=== PATIENT | female | born 1935 | race Caucasian/White ===

== ENCOUNTER 2017-08-14 23:02 | Emergency (ER) | payer MEDICARE, BC ==
--- NOTE | 2017-08-16 13:51 | ER ---
DATE SEEN: 08/14/2017 After the patient left, her daughter called and stated that Nanda Justice's medications are losartan/hydrochlorothiazide 50/12.5 mg which she takes daily. Also the computer is now up and we have the blood pressure measurements. Blood pressure 173/77, heart rate 76, respirations 18, oxygen saturation 99%, and 98.1. The patient was discharged at 0230 hours. /[id number] MIKA/CM
--- NOTE | 2017-08-16 18:20 | ER ---
DATE SEEN: 08/14/2017 TIME SEEN: The patient was seen at 2330 hours. HISTORY: This 82-year-old woman comes in and feels weak, has been weak since July 26, and this morning felt hot flashes. Temperature was 98.3. She has diabetes. No change in medications. No change in her insulin. No history of falling. No headache, lightheadedness, shortness of breath, cough, dyspnea on exertion, back pain, arm pain, jaw pain, neck pain, abdominal pain, nausea, vomiting, diarrhea, constipation, or change in bowels. No difficulty passing urine. No frequency, urgency or dysuria. No decreased muscle strength. No flaring of arthritis. Medications were not listed because the computer is down. It is not on the screen. 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 The patient is slightly confused because she does not know what medications she is on and because the computer is down, we do not have access to those records either. The daughters are not aware of her medications also. ALLERGIES: She has no allergies. No diabetes is noted. REVIEW OF SYSTEMS: Negative. PHYSICAL EXAMINATION: VITAL SIGNS: Because the computer is down, we do not have registration of her vital signs, but she is normotensive. Nurses note she has slightly elevated pressure. GENERAL: Alert woman who is very pleasant, wears glasses. HEENT: Hearing is slightly decreased. Pharynx without abnormality. NECK: No thyromegaly or masses. No bruits. LUNGS: Clear to auscultation without rales, rhonchi, or wheezes. HEART: S1, S2. No irregular rate and rhythm. No S3, no S4. ABDOMEN: Soft. No abdominal discomfort. Bowel sounds present. No guarding. No rebound. No inguinal hernia. No CVA percussion tenderness. EXTREMITIES: Lower extremities without edema. She has no tenderness in muscles, joints without abnormality, redness or erythema. She has slight foreshortened left leg compared to the right (left total hip surgery noted). LABORATORY FINDINGS: Hemoglobin is normal at 13.2, white count 5400, PMNs 65, lymphs 23, monos 10, platelets 228,000. Sodium low at 129, chloride low at 92, potassium 3.6. BUN and creatinine ratio slightly elevated suggesting mild dehydration 25, with a BUN of 15 and creatinine 0.6. Glucose slightly elevated at 207. Troponin is negative at 0.01. She has no liver elevation, except for trace elevated ALT 27. Urinalysis is normal with moderate leukocyte esterase and rare bacteria. ASSESSMENT AND PLAN: 1. Etiology for the patient's weakness is indeterminate. 2. Weakness. 3. EKG, nonspecific interventricular conduction defect with trace ST depression V5-V6, is not worth discussion, although, she has isoelectric flattened T-waves, the inferior leads and lateral precordia suggests some repolarization abnormality. Sinus rhythm. The patient was informed of the findings. I advised her to follow up with her doctor in a week. It is possible that she could have underlying depression, which she is not alluding to. No evidence for cardiovascular abnormality, arrhythmias, or chest pain. There is no suggestion of any neurological events that have occurred. She has normal neurological findings without lateralization of any signs. Additional Comment: The patient stayed here an inordinate period of time because the computer was down and it took a while to compile data paper, and the patient was gracious as well as her daughters regarding the lengthy stay. /[id number] /MODL ADDENDUM: I was able to find other notes. The patient notes she felt weak at 2100 hours this last evening and felt lightheaded and felt like things were closing in on her. She was anxious and she has been noted to be anxious per her daughters. She had vertigo in the past (BPPV) and she is taking a medicine called Di-Vertigo [id number] herbal medicine that helps with balance. She has not taken Antivert. She denies palpitations. /[id number] LS/MODL
== END 2017-08-15 02:30 | disposition home or self-care (01) ==
LOC: FB.ED 23:02
DX: R53.1 Weakness (principal); Z90.49 Acquired absence of other specified parts of digestive tract
CPT/HCPCS: 36415; 80053; 81001; 84484; 85025; 86140; 87040; 93005; 99284

== ENCOUNTER 2020-08-09 09:52 | Emergency (ER) | payer MEDICARE, BC ==
[2020-08-09] MEDS ORDERED: Acetaminophen/HYDROcodone 325-5 MG Tab PO ONE (10:14)
--- NOTE | 2020-08-09 10:23 | EDM.PDOC ---
ED HPI GENERAL MEDICAL PROBLEM - General Chief Complaint: Back Pain or Injury Stated Complaint: fall, with pain in the left upper back Time Seen by Provider: 08/09/20 10:00 Source of Information: Reports: Patient History Limitations: Reports: No Limitations - History of Present Illness INITIAL COMMENTS - FREE TEXT/NARRATIVE: states she was p at about 8am, coming from the bathroom there was water on the counter . Did not look closely and the water spilled on the floor , she stepped in the water ans slid and fell , Landed on her back and head . has painin the occipital region , no vision changes. Also has pain in the mid back ( thoracic) with radiation to the left ribs : T4-T7. no pain in the neck no numbness or tingling or pain the hands noted Onset: Today, Sudden Onset Date: 08/09/20 Onset Time: 05:00 Duration: Getting Worse Location: Reports: Chest, Back Front/Back Body Image: 1 - pain on palpation and takign a deep breath Quality: Reports: Ache, Dull, Pressure Improves with: Reports: Heat Therapy, Rest Worsens with: Reports: Movement Context: Reports: Trauma Associated Symptoms: Reports: Weakness - Related Data Allergies Allergy/AdvReac Type Severity Reaction Status Date / Time No Known Allergies Allergy Verified 08/09/20 10:34 Home Meds: Home Meds Acetaminophen/HYDROcodone [[place] 325-5 MG] 1 tab PO Q6H PRN #10 tab 08/09/20 [Rx] Exenatide Microspheres [Bydureon Pen] 2 mg SQ DAILY 08/09/20 [History] Lidocaine 5% [Lidoderm 5%] 1 patch TOP DAILY #10 patch 08/09/20 [Rx] Losartan [Cozaar] 50 mg PO DAILY 08/09/20 [History] Naproxen [Naprosyn] 500 mg PO Q12HR #30 tab 08/09/20 [Rx] Pravastatin Sodium [Pravastatin (Pravachol)] 40 mg PO DAILY 08/09/20 [History] hydroCHLOROthiazide [Hydrochlorothiazide] 12.5 mg PO DAILY 08/09/20 [History] ED ROS GENERAL - Review of Systems Review Of Systems: See Below Constitutional: Reports: No Symptoms HEENT: Reports: No Symptoms Respiratory: Denies: Shortness of Breath, Wheezing, Pleuritic Chest Pain, Cough, Sputum Cardiovascular: Reports: No Symptoms Endocrine: Reports: No Symptoms GI/Abdominal: Reports: No Symptoms : Reports: No Symptoms Musculoskeletal: Reports: Back Pain (left side in the lower scapula region) Skin: Reports: No Symptoms Neurological: Reports: Paresthesia Psychiatric: Reports: No Symptoms Hematologic/Lymphatic: Reports: No Symptoms, Other ED EXAM, UPPER BACK/NECK PAIN - Physical Exam Exam: See Below Exam Limited By: No Limitations General Appearance: Alert, WD/WN, No Apparent Distress Eye Exam: Bilateral Eye: EOMI Ears Exam: Normal External Exam Nose Exam: Normal Mucousa Throat/Mouth Exam: Normal Voice Head Exam: Scalp Swelling (occipital region : mild). No: Scalp Abrasions Neck Exam: Full Range of Motion Nexus Criteria: No: Posterior, Midline Cervical Tenderness, Altered Level of Consciousness, Focal Neurological Deficit Cardiovascular/Respiratory: Regular Rate, Rhythm GI/Abdominal: Soft, Non-Tender Rectal (Female) Exam: Normal Exam Extremities: Normal Inspection Neurologic: No Motor/Sensory Deficits, Alert, Oriented x 3 Psychiatric: Normal Affect Lymphatic: No Adenopathy Course - Vital Signs Last Recorded V/S: Last Vital Signs Temp 36.8 C 08/09/20 10:29 Pulse 83 08/09/20 10:29 Resp 18 08/09/20 10:29 BP 177/88 H 08/09/20 10:53 Pulse Ox 97 08/09/20 10:29 - Orders/Labs/Meds Orders: Active Orders 24 hr Category Date Time Status Head wo Cont [CT] Stat Exams 08/09/20 10:19 Ordered Ribs 3V wo Chest Lt [CR] Stat Exams 08/09/20 10:14 Taken CULTURE URINE [RM] Stat Lab 08/09/20 16:10 Ordered Labs: Laboratory Tests 08/09/20 08/09/20 08/09/20 Range/Units 10:25 10:25 11:45 WBC 7.7 (4.5-12.0) X10-3/uL RBC 4.01 (3.23-5.20) x10(6)uL Hgb 12.1 (11.5-15.5) g/dL Hct 35.6 (30.0-51.3) % MCV 88.6 (80-96) fL MCH 30.2 (27.7-33.6) pg MCHC 34.0 (32.2-35.4) g/dL RDW 12.5 (11.5-15.5) % Plt Count 243 (125-369) X10(3)uL MPV 6.6 L (7.4-10.4) fL Neut % (Auto) 80.7 (46-82) % Lymph % (Auto) 10.6 L (13-37) % [place] % (Auto) 7.2 (4-12) % Eos % (Auto) 1 (1.0-5.0) % Baso % (Auto) 0 (0-2) % Neut # (Auto) 6.2 (1.6-8.3) # Lymph # (Auto) 0.8 (0.6-5.0) # [place] # (Auto) 0.6 (0.0-1.3) # Eos # (Auto) 0.1 (0.0-0.8) # Baso # (Auto) 0.0 (0.0-0.2) # Sodium 135 (135-145) mmol/L Potassium 4.0 (3.5-5.3) mmol/L Chloride 95 L (100-110) mmol/L Carbon Dioxide 30 (21-32) mmol/L BUN 20 H (7-18) mg/dL Creatinine 0.8 (0.55-1.02) mg/dL Est Cr Clr Drug Dosing TNP Estimated GFR (MDRD) > 60 (>60) BUN/Creatinine Ratio 25.0 H (9-20) Glucose 148 H (80-116) mg/dL Calcium 8.4 L (8.6-10.2) mg/dL Urine Color Yellow (YELLOW) Urine Appearance Clear (CLEAR) Urine pH 6.5 (5.0-6.5) Ur Specific [place] 1.020 (1.010-1.025) Urine Protein Negative (NEGATIVE) mg/dL Urine Glucose (UA) Normal (NORMAL) mg/dL Urine Ketones Negative (NEGATIVE) mg/dL Urine Occult Blood Negative (NEGATIVE) Urine Nitrite Negative (NEGATIVE) Urine Bilirubin Negative (NEGATIVE) Urine Urobilinogen Normal (NEGATIVE) mg/dL Ur Leukocyte Esterase Small H (NEGATIVE) Urine WBC 5-10 H (0-5) Ur Squamous Epith Cells Few H (NS,R,O) Urine Bacteria Moderate H (NS) Meds: Medications Discontinued Medications Generic Name Dose Route Start Last Admin Trade Name Freq PRN Reason Stop Dose Admin Hydrocodone Bitart/Acetaminophen 1 tab 08/09/20 10:14 08/09/20 10:53 [place] 325-5 Mg PO 08/09/20 10:15 1 tab ONETIME ONE Administration Lidocaine 700 mg 08/09/20 11:09 08/09/20 11:28 Lidoderm 5% TOP 08/09/20 11:10 700 mg ONETIME ONE Administration Losartan Potassium 50 mg 08/09/20 10:24 08/09/20 10:53 Cozaar PO 08/09/20 10:25 50 mg ONETIME ONE Administration Departure - Departure Time of Disposition: 11:40 Disposition: Home, Self-Care 01 Condition: Fair Clinical Impression: Fall as cause of accidental injury at home as place of occurrence, Fall from slipping on slippery surface, Acute thoracic back pain, Contusion of rib on left side - Discharge Information *PRESCRIPTION DRUG MONITORING PROGRAM REVIEWED*: Not Applicable *COPY OF PRESCRIPTION DRUG MONITORING REPORT IN PATIENT DAMIAN: Not Applicable Prescriptions: Lidocaine 5% [Lidoderm 5%] 1 patch TOP DAILY #10 patch Naproxen [Naprosyn] 500 mg PO Q12HR #30 tab Acetaminophen/HYDROcodone [[place] 325-5 MG] 1 tab PO Q6H PRN #10 tab PRN Reason: Pain (Severe 7-10) Instructions: Fall Prevention in the Home, Adult, [id number], Thoracic Strain, [id number], Rib Contusion Referrals: PCP,None [Ordering Only Provider] - Forms: ED Department Discharge Sepsis Event Note (ED) - Focused Exam Vital Signs: Vital Signs Temp Pulse Resp BP BP Pulse Ox 08/09/20 10:53 177/88 H 08/09/20 10:29 36.8 C 83 18 131/82 97 - My Orders Last 24 Hours: My Active Orders 08/09/20 10:14 Ribs 3V wo Chest Lt [CR] Stat 08/09/20 10:19 Head wo Cont [CT] Stat 08/09/20 16:10 CULTURE URINE [RM] Stat - Assessment/Plan Last 24 Hours: My Active Orders 08/09/20 10:14 Ribs 3V wo Chest Lt [CR] Stat 08/09/20 10:19 Head wo Cont [CT] Stat 08/09/20 16:10 CULTURE URINE [RM] Stat
[2020-08-09] MEDS ORDERED: Losartan 50 MG Tab PO ONE (10:24)
[2020-08-09] MEDS ORDERED: Lidocaine 5% 700 MG Patch TOP ONE (11:09)
== END 2020-08-09 12:10 | disposition home or self-care (01) ==
LOC: FB.ED 09:52
DX: S20.212A Contusion of left front wall of thorax, initial encounter (principal); M54.6 Pain in thoracic spine; Z79.899 Other long term (current) drug therapy; W01.0XXA Fall on same level from slipping, tripping and stumbling without subsequent striking against object, initial encounter; Y92.009 Unspecified place in unspecified non-institutional (private) residence as the place of occurrence of the external cause
CPT/HCPCS: 36415; 70450; 71101; 80048; 81001; 85025; 87086; 87088; 87186; 93005; 99284; A9270

== ENCOUNTER 2022-06-05 17:05 | Emergency (ER) | payer BC, MEDICARE ==
[2022-06-05 17:48] LABS: ESTIMATED GFR 87 mL/min (>60)
[2022-06-05] MEDS ORDERED: Lactated Ringers 1,000 ML IV ONE (18:12)
[2022-06-05] MEDS ORDERED: Ondansetron 4 MG/2 ML SDV IVPUSH ONE (18:13)
[2022-06-05] MEDS ORDERED: Potassium Chloride 20 MEQ Tab.ER PO ONE (18:13)
[2022-06-05] MEDS ORDERED: Magnesium Sulfate/Water 2 GM in Premix Bag 1 BAG IV ONE (18:38)
== END 2022-06-05 21:30 | disposition home or self-care (01) ==
LOC: FB.ED 17:05
DX: U07.1 COVID-19 (principal); E87.6 Hypokalemia; E87.1 Hypo-osmolality and hyponatremia; E83.42 Hypomagnesemia; R11.2 Nausea with vomiting, unspecified; R19.7 Diarrhea, unspecified; I10 Essential (primary) hypertension; E11.9 Type 2 diabetes mellitus without complications; Z79.899 Other long term (current) drug therapy
CPT/HCPCS: 36415; 80053; 81001; 83605; 83735; 85025; 86140; 96361; 96365; 96366; 96375; 99284; A9270; J2405; J3475; J7120

== ENCOUNTER 2022-08-16 11:54 | Emergency (ER) | payer OTHER, MEDICARE | END 2022-08-16 13:00 | disposition home or self-care (01) | LOC: FB.ED 11:54 | DX: S20.212A Contusion of left front wall of thorax, initial encounter (principal); S60.012A Contusion of left thumb without damage to nail, initial encounter; E78.00 Pure hypercholesterolemia, unspecified; I10 Essential (primary) hypertension; E11.9 Type 2 diabetes mellitus without complications; Z79.899 Other long term (current) drug therapy; V48.9XXA Unspecified car occupant injured in noncollision transport accident in traffic accident, initial encounter; Y92.410 Unspecified street and highway as the place of occurrence of the external cause | CPT/HCPCS: 99283 ==